=== PATIENT | female | born 1955 | race American Indian/Alaskan Native ===

== ENCOUNTER 2019-01-28 10:46 | Outpatient (CLI) | payer OTHER ==
[~2019-01-28 10:46] MED LIST: LAMICTAL200 M1; SYNTHROID137 MCG
== END 2019-01-28 10:48 | disposition home or self-care (01) ==
LOC: MRI 10:46
DX: M25.511 Pain in right shoulder (principal)
CPT/HCPCS: 73218

== ENCOUNTER 2022-09-25 08:39 | Outpatient (CLI) | payer OTHER | END 2022-09-25 08:48 | disposition home or self-care (01) | LOC: RAD 08:39 | PROVIDERS: ATTEND Otolaryngology | DX: R13.14 Dysphagia, pharyngoesophageal phase (principal) ==

== ENCOUNTER 2024-02-01 15:02 | Outpatient (CLI) | payer OTHER | END 2024-02-01 15:09 | disposition home or self-care (01) | LOC: SONOGRAMA 15:02 | PROVIDERS: ATTEND Specialist | DX: R10.2 Pelvic and perineal pain (principal) ==

== ENCOUNTER 2024-05-15 09:29 | Emergency (ER) | payer OTHER ==
[~2024-05-15] VITALS: Ht 162.6 cm; Wt 58.5 kg
[2024-05-15] MEDS ORDERED: TRAM1TAB98 PO (09:40)
[2024-05-15] MEDS ORDERED: KETOROLAC TROMETHAMINE 60 MG VIAL IM ONE ×2 (09:43→09:45)
[2024-05-15] MEDS ORDERED: TRIAMCINOLONE ACETONIDE 40 MG/ML VIAL ONE (09:43)
[2024-05-15] MEDS ORDERED: TRIAMCINOLONE ACETONIDE 40 MG/ML VIAL IM ONE (09:45)
[2024-05-15] MEDS ORDERED: DICLOFENAC SODI75 MG PO (12:38)
[2024-05-15] MEDS ORDERED: OxyCODONE HCL/APAP UD (PERCOCET) PO ONE (15:00)
== END 2024-05-15 17:07 | disposition home or self-care (01) ==
LOC: ER 09:29
DX: M54.50 Low back pain, unspecified (principal)

== ENCOUNTER 2024-05-23 14:45 | Outpatient (CLI) | payer OTHER ==
[~2024-05-23 14:45] MED LIST changes: +DICLOFENAC SODI75 MG PO; +TRAM1TAB98 PO
== END 2024-05-23 14:53 | disposition home or self-care (01) ==
LOC: RAD 14:45
PROVIDERS: ATTEND Neurological Surgery
DX: M54.12 Radiculopathy, cervical region (principal); M54.50 Low back pain, unspecified

== ENCOUNTER 2024-07-04 15:54 | Outpatient (CLI) | payer OTHER | END 2024-07-04 16:00 | disposition home or self-care (01) | LOC: RAD 15:54 | PROVIDERS: ATTEND Internal Medicine | DX: J45.50 Severe persistent asthma, uncomplicated (principal); G47.33 Obstructive sleep apnea (adult) (pediatric); J44.9 Chronic obstructive pulmonary disease, unspecified ==